=== PATIENT | female | born 1970 | race Caucasian/White ===

== ENCOUNTER 2017-08-09 07:36 | Outpatient (RCR) | payer BC ==
[~2017-08-09 07:36] MED LIST: ALPR0.5T7 PO; AMOX1TAB12 PO; ASPI325T32 PO; CARV12.53 PO; CETI10CA PO; CETI10TA17 PO; CETI10TA20 PO; DULO60CA58 PO; FLUT16SP22 NS; GUAI10SY4 PO; HYDR25TA4 PO; HYDR5SYR PO; LOSA100T7 PO; LOSA25TA5 PO; LOSA50TA36 PO; METO-351 PO; RT-ADVAIR1 IH; VORT10TA PO
== END 2017-10-14 | disposition home or self-care (01) ==
LOC: CARD 07:36
PROVIDERS: ATTEND Internal Medicine Interventional Cardiology
DX: I48.91 Unspecified atrial fibrillation (principal); I10 Essential (primary) hypertension; I47.1 Supraventricular tachycardia
CPT/HCPCS: 93270

== ENCOUNTER → 2017-09-16 | Day surgery (SDC) | payer BC ==
[~2017-09-16] VITALS: Ht 157.5 cm; Wt 96.6 kg
[~2017-09-16] MED LIST changes: +LIDOCAINE 1% INJ 50 ML (XYLOCAINE) VIAL ONE
[2017-09-16 09:52] VITALS: BP 135/69
--- NOTE | 2017-09-16 12:58 | Cardiology Post Procedure Note ---
Post-Procedure Note Physician (s)/Diagnostic Medical Sonographer (s) Physician Sabrina MONTIEL MD Pre-Procedure Diagnosis Pre-Procedure Diagnosis: [facility] surveillance of PAF Post-Procedure Note Procedure Start Date: Sep 16, 2017 Procedure Start Time: 12:57 Name of Procedure: Biotronik ILR Findings/Procedure Note Successful Biotronik ILR implantation. Estimated blood loss (mL): 1 Contrast Amount: 0 Post-Procedure Diagnosis Post-operative diagnosis: Successful implantation of a Biotronik ILR for AF surveillance. Sabrina MONTIEL MD Sep 16, 2017 12:58 pm
[2017-09-16 13:14] VITALS: BP 164/83
--- NOTE | 2017-09-16 17:12 | OPERATIVE REPORT ---
DATE OF SERVICE: 09/16/2017 IMPLANTABLE LOOP RECORDER REPORT INDICATION: Paroxysmal atrial fibrillation. PREOPERATIVE DIAGNOSIS: Long-term surveillance of atrial fibrillation is recommended. POSTOPERATIVE DIAGNOSIS: Successful Biotronik implantable loop recorder placement. SURGEON: Brandon Siddiqui M.D. HISTORY: The patient is a 47-year-old lady with a history of paroxysmal atrial fibrillation. Long-term surveillance of atrial fibrillation was recommended. PROCEDURE IN DETAIL: The patient was brought to the laborer road after informed consent was taken. The risks and complications were explained in detail. The patient was draped and prepped in the usual sterile fashion. The Biotronik implantable loop recorder was placed according to the protocol on the left-sided fourth intercostal space after lidocaine was given for local anesthesia. The patient tolerated the procedure well, did not have any complication. The incision was closed with two interrupted sutures. R-wave was 0.98 millivolts. CONCLUSION: 1. Successful Biotronik implantable loop recorder placement. 2. Long-term surveillance of atrial fibrillation is recommended. Job ID: [id number] DocumentID: [id number] Dictated Date: 09/16/2017 14:04:03 Predatory Animal Exterminator Date: 09/16/2017 14:37:06 Dictated By: BRANDON SIDDIQUI MD
== END | disposition home or self-care (01) ==
LOC: CATH 09:36
PROVIDERS: ATTEND Internal Medicine Interventional Cardiology
DX: I48.0 Paroxysmal atrial fibrillation (principal); I10 Essential (primary) hypertension; I08.1 Rheumatic disorders of both mitral and tricuspid valves; G47.33 Obstructive sleep apnea (adult) (pediatric); E66.01 Morbid (severe) obesity due to excess calories; Z68.39 Body mass index [BMI] 39.0-39.9, adult; Z79.01 Long term (current) use of anticoagulants; Z79.899 Other long term (current) drug therapy
CPT/HCPCS: 33282

== ENCOUNTER 2017-12-16 22:11 | Emergency (ER) | payer BC ==
[~2017-12-16] VITALS: Ht 157.5 cm; Wt 93.9 kg
[~2017-12-16 22:11] MED LIST changes: -LIDOCAINE 1% INJ 50 ML (XYLOCAINE) VIAL ONE
[2017-12-16 22:42] LABS: BILIRUBIN,URINE NEGATIVE (NEGATIVE); CLARITY,URINE BLOODY; COLOR,URINE RED; GLUCOSE, URINE (UA) NEGATIVE (NEGATIVE); KETONES,URINE NEGATIVE (NEGATIVE); LEUKOCYTE ESTERASE ,URINE 3+ (NEGATIVE); NITRITE,URINE NEGATIVE (NEGATIVE); PH,URINE 7 (5-9); PROTEIN,URINE 3+ (NEGATIVE); UROBILINOGEN,URINE NORMAL (NORMAL)
[2017-12-16 22:57] LABS: BACTERIA,URINE FEW /HPF; WBC,URINE TNTC /HPF
[2017-12-16] MEDS ORDERED: RX-NITROFURANTOIN 100 MG (MACROBID) CAP PPK#2 PO STA (23:09)
[2017-12-16] MEDS ORDERED: NITR-65 PO (23:12)
[2017-12-16] MEDS ORDERED: PHEN-640 PO (23:12)
--- NOTE | 2017-12-16 23:12 | ED GU-Female ---
General Chief Complaint: -Female Stated Complaint: UTI OR KIDNEY STONE Nursing Triage Note: PT TO ED 1 W/ SON FOR C/O SUDDEN ONSET URINARY RETENTION, BLOOD IN URINE. REPORTS HAS URGENCY ET FREQUENCY W/ C/O. PT AFEBRILE AT THIS TIME. Nursing Sepsis Screen: No Definite Risk Source: patient Exam Limitations: no limitations History of Present Illness Date Seen by Provider: Dec 16, 2017 Time Seen by Provider: 22:47 Initial Comments PT ARRIVES VIA POV FROM HOME C/O PAIN, BURNING AND DIFFICULTY URINATING SINCE THIS AFTERNOON C/O MUCH URGENCY, VOIDING SMALL AMOUNTS/DRIBBLES, AND FREQUENCY C/O LOWER ABDOMINAL CRAMPING AT TIMES HAS NOTICED BLOOD IN URINE TONIGHT NO FEVER NO BACK PAIN NO NAUSEA/VOMITING NO HISTORY OF SIMILAR Allergies and Home Medications Allergies Coded Allergies: lisinopril (Unverified Adverse Reaction, Unknown, 09/26/14) COUGH Home Medications Alprazolam 0.5 Mg Tablet, 0.5 MG PO TID PRN for ANXIETY, (Reported) Aspirin 325 Mg Tablet.dr, 325 MG PO DAILY Prescribed by: IDALIA MUELLER on 06/14/17 1650 Cetirizine HCl 10 Mg Tablet, 10 MG PO DAILY, (Reported) Hydrochlorothiazide 25 Mg Tablet, 25 MG PO DAILY, (Reported) Losartan Potassium 50 Mg Tablet, 50 MG PO BID, (Reported) LAST FILLED 03/12/17 #90 Metoprolol Succinate 25 Mg Tab.er.24h, 25 MG PO DAILY Prescribed by: IDALIA MUELLER on 06/14/17 165 Nitrofurantoin Monohyd/M-Cryst 100 Mg Capsule, 100 MG PO BID Prescribed by: WILLIAN ARNOLD on 12/16/17 231 Phenazopyridine HCl 200 Mg Tablet, 1 TAB PO TID Prescribed by: WILLIAN ARNOLD on 12/16/17 231 Vortioxetine Hydrobromide 10 Mg Tablet, 10 MG PO DAILY, (Reported) Patient Home Medication List Home Medication List Reviewed: Yes Review of Systems Constitutional: no symptoms reported Respiratory: no symptoms reported Cardiovascular: no symptoms reported Gastrointestinal: see HPI Genitourinary: see HPI, burning, dysuria, frequency; denies flank pain; hematuria, pain, urgency Musculoskeletal: no symptoms reported Skin: no symptoms reported Psychiatric/Neurological: No Symptoms Reported Endocrine: No Symptoms Reported Hematologic/Lymphatic: No Symptoms Reported Past Phivqmy-Pyvrth-Hbzbid Hx Patient Social History Alcohol Use: Denies Use Recreational Drug Use: No Smoking Status: Never a Smoker Recent Foreign Travel: No Contact w/Someone Who Travel: No Recent Infectious Disease Expo: No Recent Hopitalizations: No Immunizations Up To Date PED Vaccines UTD: No Seasonal Allergies Seasonal Allergies: Yes Past Medical History Surgeries: Yes (GASTRIC SLEEVE; D&C; LIPOMA REMOVED-WOUND INFECTION WITH DEBRIDEMENTS AND WOUND VAC; BLADDER SURGERY AGE 4) Abdominal, Bladder Surgery Respiratory: No Cardiac: Yes (SVT) Hypertension, Irregular Heartbeat Neurological: No Reproductive Disorders: No Sexually Transmitted Disease: No Genitourinary: No (BLADDER SURGERY AGE 4) Gastrointestinal: No (GASTRIC SLEEVE (05/14)) Musculoskeletal: No Endocrine: No HEENT: No Cancer: No Psychosocial: Yes Anxiety, PTSD, Depression Integumentary: Yes (MRSA-POST OP WOUND INFECTION WITH DEBRIDEMENTS/ WOUND VAC) Blood Disorders: No Family Medical History Arthritis 19 FATHER 19 MOTHER Cardiovascular disease Diabetes mellitus 19 MOTHER FH: CHF (congestive heart failure) 19 FATHER Hypertension 19 FATHER 19 MOTHER G8 BROTHER G8 SISTER Hypertension Physical Exam Vital Signs Vital Signs - First Documented 12/16/17 22:42 Temp 98.1 Pulse 91 Resp 20 B/P (MAP) 142/87 (105) Pulse Ox 99 O2 Delivery Room Air Capillary Refill : Less Than 3 Seconds General Appearance: no apparent distress Cardiovascular: regular rate, rhythm, no murmur Respiratory: normal breath sounds, no respiratory distress, no accessory muscle use Gastrointestinal: normal bowel sounds, soft, no organomegaly, no pulsatile mass ; No distended, No guarding, No rebound; tenderness (MILD SUPRAPUBIC TENDERNESSS ); No hernia, No mass Back: normal inspection, no CVA tenderness Extremities: normal inspection, no pedal edema, normal capillary refill 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, no motor/sensory deficits, alert, normal mood/affect, oriented x 3 Skin: normal color, warm/dry Progress/Results/Core Measures Suspected Sepsis Recent Fever Within 48 Hours: No Infection Criteria Present: None New/Unexplained Altered Menta: No Sepsis Screen: No Definite Risk SIRS Temperature:98.1 Pulse: 91 Respiratory Rate: 20 Blood Pressure 142 /87 Mean: 105 Results/Orders Lab Results Laboratory Tests Test 12/16/17 22:37 Range/Units Urine Color RED H Urine Clarity BLOODY H Urine pH 7 5-9 Urine Specific [place] 1.005 L 1.016-1.022 Urine Protein 3+ H NEGATIVE Urine Glucose (UA) NEGATIVE NEGATIVE Urine Ketones NEGATIVE NEGATIVE Urine Nitrite NEGATIVE NEGATIVE Urine Bilirubin NEGATIVE NEGATIVE Urine Urobilinogen NORMAL NORMAL MG/DL Urine Leukocyte Esterase 3+ H NEGATIVE Urine RBC (Auto) 5+ H NEGATIVE Urine RBC 5-10 H /HPF Urine WBC TNTC H /HPF Urine Squamous Epithelial Cells 2-5 /HPF Urine Crystals NONE /LPF Urine Bacteria FEW H /HPF Urine Casts NONE /LPF Urine Mucus NEGATIVE /LPF Urine Culture Indicated YES My Orders Orders - CLAYTON,WILLIAN K DO Rx-Nitrofurantoin [place] (Rx-Macrobid) (12/16/17 23:09) Phenazopyridine Tablet (Pyridium Tablet) (12/16/17 23:15) Medications Given in ED Current Medications Medications Dose Ordered Sig/Natasha Route Start Time Stop Time Status Last Admin Dose Admin Phenazopyridine HCl 200 mg ONCE ONCE PO 12/16/17 23:15 12/16/17 23:16 DC 12/16/17 23:15 200 MG Vital Signs/I&O 12/16/17 12/16/17 22:42 23:17 Temp 98.1 Pulse 91 0 Resp 20 0 B/P (MAP) 142/87 (105) 0/0 Pulse Ox 99 0 O2 Delivery Room Air Capillary Refill : Less Than 3 Seconds Blood Pressure Mean: 105 Departure Impression Primary Impression: Urinary tract infection Disposition: 01 HOME, SELF-CARE Condition: Stable Departure-Patient Inst. Referrals: AMITA MARLOW MD (PCP) Primary Care Physician BETH GODINEZ (Family) Primary Care Physician Patient Instructions: Urinary Tract Infection, Adult (DC) Add. Discharge Instructions: LOTS OF CLEAR LIQUIDS--NO COFFEE, POP OR TEA TYLENOL AND MOTRIN NEEDED FOR PAIN FOLLOW UP WITH YOUR DR IN 2-3 DAYS IF NO BETTER All discharge instructions reviewed with patient and/or family. Voiced understanding. Scripts Phenazopyridine HCl (Pyridium) 200 Mg Tablet 1 TAB PO TID for BLADDER DISCOMFORT, #15 TAB Prov: CLAYTON,WILLIAN K DO 12/16/17 Nitrofurantoin Monohyd/M-Cryst (Macrobid 100 mg Capsule) 100 Mg Capsule 100 MG PO BID, #20 CAP Prov: WILLIAN ARNOLD DO 12/16/17 WILLIAN ARNOLD DO Dec 16, 2017 23:12
[2017-12-16] MEDS ORDERED: PHENAZOPYRIDINE 100 MG (PYRIDIUM) TABLET PO ONE (23:15)
[2017-12-16 23:17] VITALS: BP 0/0
== END 2017-12-16 23:17 | disposition home or self-care (01) ==
LOC: EDUNIT# 22:11 → ER 22:13
DX: N39.0 Urinary tract infection, site not specified (principal); I10 Essential (primary) hypertension; F41.9 Anxiety disorder, unspecified; F32.9 Major depressive disorder, single episode, unspecified; F43.10 Post-traumatic stress disorder, unspecified; Z86.14 Personal history of Methicillin resistant Staphylococcus aureus infection; Z82.49 Family history of ischemic heart disease and other diseases of the circulatory system; Z88.8 Allergy status to other drugs, medicaments and biological substances; Z79.82 Long term (current) use of aspirin; Z98.84 Bariatric surgery status
CPT/HCPCS: 81000; 87077; 87088; 87186; 99283

== ENCOUNTER 2018-09-05 05:32 | Outpatient (CLI) | payer BC ==
[~2018-09-05] VITALS: Ht 157.5 cm; Wt 90.7 kg
[~2018-09-05 05:32] MED LIST changes: -LOSA50TA36 PO; +LOSA50TA7 PO; +NITR-65 PO; +PHEN-640 PO
[2018-09-05] MEDS ORDERED: APIX5TAB PO (15:53)
[2018-09-05] MEDS ORDERED: METO-387 PO (15:53)
== END 2018-09-05 15:56 | disposition home or self-care (01) ==
LOC: PREOP 05:32
PROVIDERS: ATTEND Internal Medicine Interventional Cardiology
DX: Z01.818 Encounter for other preprocedural examination (principal)

== ENCOUNTER 2018-09-12 06:09 | Day surgery (SDC) | payer BC ==
[2018-09-12] VITALS (14 sets, daily range): BP systolic 100–142; BP diastolic 55–109
[~2018-09-12] VITALS: Ht 157.5 cm; Wt 90.7 kg
[~2018-09-12 06:09] MED LIST changes: +APIX5TAB PO; +METO-387 PO
--- OUTSIDE RECORDS SUMMARY | 2018-09-12 06:16 | XMS REPORT | Continuity of Care Document ---
Author Author [facility] Organization [facility] Address Unknown Phone Unavailable Allergies Active Description Code Type Severity Reaction Onset Reported/Identified Relationship to Patient Clinical Status Yes BETA BLOCKERS BETA BLOCKERS MILD Yes NO KNOWN DRUG ALLERGIES NO KNOWN DRUG ALLERG UNKNOWN Yes BETA BLOCKERS MILD RESPIRATORY - COUGHI Yes BETA BLOCKERS MILD SIDE EFFECT Yes NO KNOWN DRUG ALLERGIES UNKNOWN NO KNOWN DRUG ALLERG Yes lisinopril [id number] Drug Allergy Unknown N/A 09/26/2014 Medications Medication Packaging Start Date Stop Date Route Dosage Sig FENTANYL AMP INJ 100 MCG/2CC MCG 10/06/2016 ONCE&0734 LACTATED RINGERS 1000CC IV BAG INJ 0 ml 10/06/2016 10/13/2016 CONTINUOUSEVERY 0 Hour CEFAZOLIN VIAL INJ 1 GM (ANCEF) GM 10/06/2016 10/06/2016 ONCE&1145 doxycycline hyclate 100mg capsule (Vibramycin) Dose(s) 01/14/2017 01/24/2017 EVERY 12 Hour&0032,1232 LACTATED RINGERS 1000CC IV BAG INJ ml 01/14/2017 01/21/2017 CONTINUOUSEVERY 0 Hour LACTATED RINGERS 1000CC IV BAG INJ ml 01/15/2017 01/21/2017 CONTINUOUSEVERY 0 Hour CEFAZOLIN VIAL INJ 1 GM (ANCEF) GM 01/15/2017 01/15/2017 ONCE&1115 Problems Date Dx Coded Attending Type Code Diagnosis Diagnosed By 09/27/2014 FREDERICK BARRON DO Ot 278.01 MORBID OBESITY 09/27/2014 FREDERICK BARRON DO Ot 311 DEPRESSIVE DISORDER NEC 09/27/2014 FREDERICK BARRON DO Ot 401.9 HYPERTENSION NOS 09/27/2014 FREDERICK BARRON DO Ot 427.0 PAROX ATRIAL TACHYCARDIA 09/27/2014 FREDERICK BARRON DO Ot 427.89 CARDIAC DYSRHYTHMIAS NEC 09/27/2014 FREDERICK BARRON DO Ot 465.9 ACUTE URI NOS 09/27/2014 BARRON DO, FREDERICK Ot 490 BRONCHITIS NOS 09/27/2014 BARRON DO, FREDERICK Ot 786.50 CHEST PAIN NOS 09/27/2014 BEATRICE GREENE, FREDERICK Ot 790.29 OTHER ABNORMAL GLUCOSE 09/27/2014 BEATRICE GREENE, FREDERICK Ot 790.5 ABN SERUM ENZY LEVEL NEC 09/27/2014 BEATRICE GREENE FREDERICK Ot V85.42 BODY MASS INDEX 45.0-49.9, ADULT 12/28/2014 AMAURY REYES DO Ot 327.23 OBSTRUCTIVE SLEEP APNEA (ADULT) (PEDIATR 12/28/2014 AMAURY REYES DO Ot 401.9 HYPERTENSION NOS 02/13/2015 CR CORTEZ, DEISY Lugo Ot 401.9 02/13/2015 CR CORTEZ, DEISY Lugo Ot 401.9 03/05/2015 DARLENE DORSEY APRN Ot 278.01 03/05/2015 DARLENE DORSEY APRN Ot 327.23 06/07/2015 CR CORTEZ, DEISY Lugo Ot 401.9 06/07/2015 DARLENE DORSEY APRN Ot 278.01 06/07/2015 DARLENE DORSEY APRN Ot 327.23 09/02/2015 CR CORTEZ, DEISY Lugo Ot 401.9 09/02/2015 DARLENE DORSEY APRN Ot 278.01 09/02/2015 DARLENE DORSEY APRN Ot 327.23 01/16/2016 CR CORTEZ, DEISY Lugo Ot 401.9 HYPERTENSION NOS 01/16/2016 DARLENE DORSEY APRN Ot 278.01 MORBID OBESITY 01/16/2016 DARLENE DORSEY APRN Ot 327.23 OBSTRUCTIVE SLEEP APNEA (ADULT) (PEDIATR 10/06/2016 Murphy Dupont 729.3 PANNICULITIS, UNSPECIFIED 10/06/2016 Murphy Dupont 782.2 LOCALIZED SUPERFICIAL SWELLING, MASS, OR LUMP 10/06/2016 Murphy Dupont M79.3 PANNICULITIS, UNSPECIFIED 10/06/2016 Murphy Dupont R22.42 LOCALIZED SWELLING, MASS AND LUMP, LEFT LOWER LIMB 01/15/2017 Murphy Dupont 041.11 METHICILLIN SUSCEPTIBLE STAPHYLOCOCCUS AUREUS INFECTION IN CONDITIONS CLASSIFIED ELSEWHERE AND OF UNSPECIFIED SITE 01/15/2017 Murphy Dupont 998.59 OTHER POSTOPERATIVE INFECTION 01/15/2017 Murphy Dupont B95.61 METHICILLIN SUSCEP STAPH INFCT CAUSING DIS CLASSD ELSWHR 01/15/2017 Murphy Dupont T81.4XXA INFECTION FOLLOWING A PROCEDURE, INITIAL ENCOUNTER 01/16/2017 Murphy Dupont 041.11 METHICILLIN SUSCEPTIBLE STAPHYLOCOCCUS AUREUS INFECTION IN CONDITIONS CLASSIFIED ELSEWHERE AND OF UNSPECIFIED SITE 01/16/2017 Murphy Dupont 998.59 OTHER POSTOPERATIVE INFECTION 01/16/2017 Murphy Dupont B95.61 METHICILLIN SUSCEP STAPH INFCT CAUSING DIS CLASSD ELSWHR 01/16/2017 Murphy Dupont T81.4XXA INFECTION FOLLOWING A PROCEDURE, INITIAL ENCOUNTER 01/16/2017 Murphy Dupont V58.31 ENCOUNTER FOR CHANGE OR REMOVAL OF SURGICAL WOUND DRESSING 01/16/2017 Murphy Dupont Z48.01 ENCOUNTER FOR CHANGE OR REMOVAL OF SURGICAL WOUND DRESSING 01/17/2017 Murphy Dupont 041.11 METHICILLIN SUSCEPTIBLE STAPHYLOCOCCUS AUREUS INFECTION IN CONDITIONS CLASSIFIED ELSEWHERE AND OF UNSPECIFIED SITE 01/17/2017 Murphy Dupont 998.59 OTHER POSTOPERATIVE INFECTION 01/17/2017 Murphy Dupont B95.61 METHICILLIN SUSCEPTIBLE STAPHYLOCOCCUS AUREUS INFECTION THE CAUSE OF DISEASES CLASSIFIED ELSEWHERE 01/17/2017 Murphy Dupont T81.4XXA INFECTION FOLLOWING A PROCEDURE, INITIAL ENCOUNTER 01/17/2017 Murphy Dupont V58.31 ENCOUNTER FOR CHANGE OR REMOVAL OF SURGICAL WOUND DRESSING 01/17/2017 Murphy Dupont Z48.01 ENCOUNTER FOR CHANGE OR REMOVAL OF SURGICAL WOUND DRESSING 01/23/2017 Murphy Dupont 041.11 METHICILLIN SUSCEPTIBLE STAPHYLOCOCCUS AUREUS INFECTION IN CONDITIONS CLASSIFIED ELSEWHERE AND OF UNSPECIFIED SITE 01/23/2017 Murphy Dpuont 998.59 OTHER POSTOPERATIVE INFECTION 01/23/2017 Murphy Dupont B95.61 METHICILLIN SUSCEP STAPH INFCT CAUSING DIS CLASSD ELSWHR 01/23/2017 Murphy Dupont T81.4XXA INFECTION FOLLOWING A PROCEDURE, INITIAL ENCOUNTER 01/23/2017 KiahMurphy V58.31 ENCOUNTER FOR CHANGE OR REMOVAL OF SURGICAL WOUND DRESSING 01/23/2017 Murphy Dupont Z48.01 ENCOUNTER FOR CHANGE OR REMOVAL OF SURGICAL WOUND DRESSING 01/24/2017 KiahOral phamdemian Oconnor 041.11 METHICILLIN SUSCEPTIBLE STAPHYLOCOCCUS AUREUS INFECTION IN CONDITIONS CLASSIFIED ELSEWHERE AND OF UNSPECIFIED SITE 01/24/2017 Murphy Dupont 998.59 OTHER POSTOPERATIVE INFECTION 01/24/2017 KiahMurphy B95.61 METHICILLIN SUSCEP STAPH INFCT CAUSING DIS CLASSD ELSWHR 01/24/2017 Kiah, Murphy Oconnor T81.4XXA INFECTION FOLLOWING A PROCEDURE, INITIAL ENCOUNTER 01/24/2017 Murphy Dupont V58.31 ENCOUNTER FOR CHANGE OR REMOVAL OF SURGICAL WOUND DRESSING 01/24/2017 Murphy Dupont Z48.01 ENCOUNTER FOR CHANGE OR REMOVAL OF SURGICAL WOUND DRESSING 01/25/2017 Murphy Dupont 041.11 METHICILLIN SUSCEPTIBLE STAPHYLOCOCCUS AUREUS INFECTION IN CONDITIONS CLASSIFIED ELSEWHERE AND OF UNSPECIFIED SITE 01/25/2017 KiahMurphy 998.59 OTHER POSTOPERATIVE INFECTION 01/25/2017 KiahMurphy B95.61 METHICILLIN SUSCEP STAPH INFCT CAUSING DIS CLASSD ELSWHR 01/25/2017 KiahMurphy T81.4XXA INFECTION FOLLOWING A PROCEDURE, INITIAL ENCOUNTER 01/25/2017 Murphy Dupont V58.31 ENCOUNTER FOR CHANGE OR REMOVAL OF SURGICAL WOUND DRESSING 01/25/2017 Murphy Dupont Z48.01 ENCOUNTER FOR CHANGE OR REMOVAL OF SURGICAL WOUND DRESSING 06/13/2017 CR CORTEZ, RYAN Ot 401.9 HYPERTENSION NOS 06/13/2017 DARLENE DORSEY APRN Ot 278.01 MORBID OBESITY 06/13/2017 DARLENE DORSEY APRN Ot 327.23 OBSTRUCTIVE SLEEP APNEA (ADULT) (PEDIATR 06/14/2017 IDALIA MUELLER MD Ot G47.30 SLEEP APNEA, UNSPECIFIED 06/14/2017 IDALIA MUELLER MD Ot I10 ESSENTIAL (PRIMARY) HYPERTENSION 06/14/2017 IDALIA MUELLER MD Ot I47.1 SUPRAVENTRICULAR TACHYCARDIA 06/14/2017 IDALIA MUELLER MD Ot J44.9 CHRONIC OBSTRUCTIVE PULMONARY DISEASE, U 06/14/2017 IDALIA MUELLER MD Ot R07.9 CHEST PAIN, UNSPECIFIED 06/14/2017 IDALIA MUELLER MD Ot Z79.899 OTHER LONGTERM (CURRENT) DRUG THERAPY 06/14/2017 IDALIA MUELLER MD Ot Z98.84 BARIATRIC SURGERY STATUS 06/14/2017 IDALIA MUELLER MD Ot G47.30 SLEEP APNEA, UNSPECIFIED 06/14/2017 IDALIA MUELLER MD J Ot I10 ESSENTIAL (PRIMARY) HYPERTENSION 06/14/2017 IDALIA MUELLER MD Ot I47.1 SUPRAVENTRICULAR TACHYCARDIA 06/14/2017 IDALIA MUELLER MD Ot J44.9 CHRONIC OBSTRUCTIVE PULMONARY DISEASE, U 06/14/2017 IDALIA MUELLER MD Ot R07.9 CHEST PAIN, UNSPECIFIED 06/14/2017 IDALIA MUELLER MD J Ot Z79.899 OTHER ECG TECHNICIAN (CURRENT) DRUG THERAPY 06/14/2017 IDALIA MUELLER MD Ot Z98.84 BARIATRIC SURGERY STATUS 06/15/2017 IDALIA MUELLER MD Ot G47.30 SLEEP APNEA, UNSPECIFIED 06/15/2017 IDALIA MUELLER MD Ot I10 ESSENTIAL (PRIMARY) HYPERTENSION 06/15/2017 IDALIA MUELLER MD Ot I47.1 SUPRAVENTRICULAR TACHYCARDIA 06/15/2017 IDALIA MUELLER MD Ot J44.9 CHRONIC OBSTRUCTIVE PULMONARY DISEASE, U 06/15/2017 IDALIA MUELLER MD Ot R07.9 CHEST PAIN, UNSPECIFIED 06/15/2017 IDALIA MUELLER MD Ot Z79.899 OTHER ECG TECHNICIAN (CURRENT) DRUG THERAPY 06/15/2017 IDALIA MUELLER MD Ot Z98.84 BARIATRIC SURGERY STATUS 06/25/2017 CR CORTEZ, DEISY Lugo Ot 401.9 HYPERTENSION NOS 06/25/2017 DARLENE DORSEY APRN Ot 278.01 MORBID OBESITY 06/25/2017 DARLENE DORSEY APRN Ot 327.23 OBSTRUCTIVE SLEEP APNEA (ADULT) (PEDIATR 07/19/2017 Sabrina MONTIEL MD Ot I10 ESSENTIAL (PRIMARY) HYPERTENSION 07/19/2017 Sabrina MONTIEL MD Ot I47.1 SUPRAVENTRICULAR TACHYCARDIA 07/19/2017 Sabrina MONTIEL MD Ot I48.91 UNSPECIFIED ATRIAL FIBRILLATION 08/12/2017 Sabrina MONTIEL MD Ot I10 ESSENTIAL (PRIMARY) HYPERTENSION 08/12/2017 Sabrina MONTIEL MD Ot I47.1 SUPRAVENTRICULAR TACHYCARDIA 08/12/2017 Sabrina MONTIEL MD Ot I48.91 UNSPECIFIED ATRIAL FIBRILLATION 09/16/2017 Sabrina MONTIEL MD Ot I10 ESSENTIAL (PRIMARY) HYPERTENSION 09/16/2017 Sabrina MONTIEL MD Ot I47.1 SUPRAVENTRICULAR TACHYCARDIA 09/16/2017 Sabrina MONTIEL MD Ot I48.91 UNSPECIFIED ATRIAL FIBRILLATION 09/20/2017 Sabrina MONTIEL MD Ot E66.01 MORBID (SEVERE) OBESITY DUE TO EXCESS CA 09/20/2017 Sabrina MONTIEL MD Ot G47.33 OBSTRUCTIVE SLEEP APNEA (ADULT) (PEDIATR 09/20/2017 Sabrina MONTIEL MD Ot I08.1 RHEUMATIC DISORDERS OF BOTH MITRAL AND T 09/20/2017 Sabrina MONTIEL MD Ot I10 ESSENTIAL (PRIMARY) HYPERTENSION 09/20/2017 Sabrina MONTIEL MD Ot I48.0 PAROXYSMAL ATRIAL FIBRILLATION 09/20/2017 Sabrina MONTIEL MD Ot Z68.39 BODY MASS INDEX (BMI) 39.0-39.9, ADULT 09/20/2017 Sabrina MONTIEL MD Ot Z79.01 ECG TECHNICIAN (CURRENT) USE OF ANTICOAGULANT 09/20/2017 Sabrina MONTIEL MD Ot Z79.899 OTHER ECG TECHNICIAN (CURRENT) DRUG THERAPY 09/21/2017 Sabrina MONTIEL MD Ot E66.01 MORBID (SEVERE) OBESITY DUE TO EXCESS CA 09/21/2017 Sabrina MONTIEL MD Ot G47.33 OBSTRUCTIVE SLEEP APNEA (ADULT) (PEDIATR 09/21/2017 Sabrina MONTIEL MD Ot I08.1 RHEUMATIC DISORDERS OF BOTH MITRAL AND T 09/21/2017 Sabrina MONTIEL MD Ot I10 ESSENTIAL (PRIMARY) HYPERTENSION 09/21/2017 Sabrina MONTIEL MD Ot I48.0 PAROXYSMAL ATRIAL FIBRILLATION 09/21/2017 Sabrina MONTIEL MD Ot Z68.39 BODY MASS INDEX (BMI) 39.0-39.9, ADULT 09/21/2017 Sabrina MONTIEL MD Ot Z79.01 LONGTERM (CURRENT) USE OF ANTICOAGULANT 09/21/2017 Sabrina MONTIEL MD Ot Z79.899 OTHER ECG TECHNICIAN (CURRENT) DRUG THERAPY 09/30/2017 Sabrina MONTIEL MD Ot E66.01 MORBID (SEVERE) OBESITY DUE TO EXCESS CA 09/30/2017 Sabrina MONTIEL MD Ot G47.33 OBSTRUCTIVE SLEEP APNEA (ADULT) (PEDIATR 09/30/2017 Sabrina MONTIEL MD Ot I08.1 RHEUMATIC DISORDERS OF BOTH MITRAL AND T 09/30/2017 Sabrina MONTIEL MD Ot I10 ESSENTIAL (PRIMARY) HYPERTENSION 09/30/2017 Sabrina MONTIEL MD Ot I48.0 PAROXYSMAL ATRIAL FIBRILLATION 09/30/2017 Sabrina MONTIEL MD Ot Z68.39 BODY MASS INDEX (BMI) 39.0-39.9, ADULT 09/30/2017 Sabrina MONTIEL MD Ot Z79.01 ECG TECHNICIAN (CURRENT) USE OF ANTICOAGULANT 09/30/2017 Sabrina MONTIEL MD Ot Z79.899 OTHER LONGTERM (CURRENT) DRUG THERAPY 10/14/2017 Sabrina MONTIEL MD Ot I10 ESSENTIAL (PRIMARY) HYPERTENSION 10/14/2017 Sabrina MONTIEL MD Ot I47.1 SUPRAVENTRICULAR TACHYCARDIA 10/14/2017 Sabrina MONTIEL MD Ot I48.91 UNSPECIFIED ATRIAL FIBRILLATION 10/15/2017 Sabrina MONTIEL MD Ot I10 ESSENTIAL (PRIMARY) HYPERTENSION 10/15/2017 Sabrina MONTIEL MD Ot I47.1 SUPRAVENTRICULAR TACHYCARDIA 10/15/2017 Sabrina MONTIEL MD Ot I48.91 UNSPECIFIED ATRIAL FIBRILLATION 12/16/2017 WILLIAN ARNOLD DO Ot F32.9 MAJOR DEPRESSIVE DISORDER, SINGLE EPISOD 12/16/2017 CLAYTON DO, WILLIAN K Ot F41.9 ANXIETY DISORDER, UNSPECIFIED 12/16/2017 CLAYTON DO, WILLIAN K Ot F43.10 POST-TRAUMATIC STRESS DISORDER, UNSPECIF 12/16/2017 CLAYTON DO, WILLIAN K Ot I10 ESSENTIAL (PRIMARY) HYPERTENSION 12/16/2017 CLAYTON DO, WILLIAN K Ot N39.0 URINARY TRACT INFECTION, SITE NOT SPECIF 12/16/2017 CLAYTON DO, WILLIAN K Ot R30.0 DYSURIA 12/16/2017 CLAYTON DO, WILLIAN K Ot Z79.82 LONGTERM (CURRENT) USE OF ASPIRIN 12/16/2017 CLAYTON DO, WILLIAN K Ot Z82.49 FAMILY HX OF ISCHEM HEART DIS AND OTH DI 12/16/2017 CLAYTON DO, WILLIAN K Ot Z86.14 PERSONAL HISTORY OF METHICILLIN RESIS ST 12/16/2017 CLAYTON DO, WILLIAN K Ot Z88.8 ALLERGY STATUS TO OTH DRUG/MEDS/BIOL SUB 12/16/2017 CLAYTON DO, WILLIAN K Ot Z98.84 BARIATRIC SURGERY STATUS 12/20/2017 CLAYTON DO, WILLIAN K Ot F32.9 MAJOR DEPRESSIVE DISORDER, SINGLE EPISOD 12/20/2017 CLAYTON DO, WILLIAN K Ot F41.9 ANXIETY DISORDER, UNSPECIFIED 12/20/2017 CLAYTON DO, WILLIAN K Ot F43.10 POST-TRAUMATIC STRESS DISORDER, UNSPECIF 12/20/2017 CLAYTON DO, WILLIAN K Ot I10 ESSENTIAL (PRIMARY) HYPERTENSION 12/20/2017 CLAYTON DO, WILLIAN K Ot N39.0 URINARY TRACT INFECTION, SITE NOT SPECIF 12/20/2017 CLAYTON DO, WILLIAN K Ot R30.0 DYSURIA 12/20/2017 CLAYTON DO, WILLIAN K Ot Z79.82 ECG TECHNICIAN (CURRENT) USE OF ASPIRIN 12/20/2017 CLAYTON DO, WILLIAN K Ot Z82.49 FAMILY HX OF ISCHEM HEART DIS AND OTH DI 12/20/2017 CLAYTON DO, WILLIAN K Ot Z86.14 PERSONAL HISTORY OF METHICILLIN RESIS ST 12/20/2017 CLATYON DO WILLIAN K Ot Z88.8 ALLERGY STATUS TO OTH DRUG/MEDS/BIOL SUB 12/20/2017 CLAYTON DO WILLIAN K Ot Z98.84 BARIATRIC SURGERY STATUS 02/16/2018 CR CORTEZ, DEISY Lugo Ot 401.9 HYPERTENSION NOS 02/16/2018 DARLENE DORSEY APRN Ot 278.01 MORBID OBESITY 02/16/2018 DARLENE DORSEY APRN Ot 327.23 OBSTRUCTIVE SLEEP APNEA (ADULT) (PEDIATR 02/16/2018 Sabrina MONTIEL MD Ot E66.01 MORBID (SEVERE) OBESITY DUE TO EXCESS CA 02/16/2018 Sabrina MONTIEL MD Ot G47.33 OBSTRUCTIVE SLEEP APNEA (ADULT) (PEDIATR 02/16/2018 Sabrina MONTIEL MD Ot I08.1 RHEUMATIC DISORDERS OF BOTH MITRAL AND T 02/16/2018 Sabrina MONTIEL MD Ot I10 ESSENTIAL (PRIMARY) HYPERTENSION 02/16/2018 Sabrina MONTIEL MD Ot I48.0 PAROXYSMAL ATRIAL FIBRILLATION 02/16/2018 Sabrina MONTIEL MD Ot Z68.39 BODY MASS INDEX (BMI) 39.0-39.9, ADULT 02/16/2018 Sabrina MONTIEL MD Ot Z79.01 ECG TECHNICIAN (CURRENT) USE OF ANTICOAGULANT 02/16/2018 Sabrina MONTIEL MD Ot Z79.899 OTHER LONGTERM (CURRENT) DRUG THERAPY 02/16/2018 Sabrina MONTIEL MD Ot I10 ESSENTIAL (PRIMARY) HYPERTENSION 02/16/2018 Sabrina MONTIEL MD Ot I47.1 SUPRAVENTRICULAR TACHYCARDIA 02/16/2018 Sabrina MONTIEL MD Ot I48.91 UNSPECIFIED ATRIAL FIBRILLATION 03/15/2018 Sabrina MONTIEL MD Ot E66.01 MORBID (SEVERE) OBESITY DUE TO EXCESS CA 03/15/2018 Sabrina MONTIEL MD Ot G47.33 OBSTRUCTIVE SLEEP APNEA (ADULT) (PEDIATR 03/15/2018 Sabrina MONTIEL MD Ot I08.1 RHEUMATIC DISORDERS OF BOTH MITRAL AND T 03/15/2018 Sabrina MONTIEL MD Ot I10 ESSENTIAL (PRIMARY) HYPERTENSION 03/15/2018 Sabrina MONTIEL MD Ot I48.0 PAROXYSMAL ATRIAL FIBRILLATION 03/15/2018 Sabrina MONTIEL MD Ot Z68.39 BODY MASS INDEX (BMI) 39.0-39.9, ADULT 03/15/2018 Sabrina MONTIEL MD Ot Z79.01 ECG TECHNICIAN (CURRENT) USE OF ANTICOAGULANT 03/15/2018 Sabrina MONTIEL MD Ot Z79.899 OTHER LONGTERM (CURRENT) DRUG THERAPY 05/05/2018 Sabrina MONTIEL MD Ot E66.01 MORBID (SEVERE) OBESITY DUE TO EXCESS CA 05/05/2018 Sabrina MONTIEL MD Ot G47.33 OBSTRUCTIVE SLEEP APNEA (ADULT) (PEDIATR 05/05/2018 Sabrina MONTIEL MD Ot I08.1 RHEUMATIC DISORDERS OF BOTH MITRAL AND T 05/05/2018 Sabrina MONTIEL MD Ot I10 ESSENTIAL (PRIMARY) HYPERTENSION 05/05/2018 Sabrina MONTIEL MD Ot I48.0 PAROXYSMAL ATRIAL FIBRILLATION 05/05/2018 Sabrina MONTIEL MD Ot Z68.39 BODY MASS INDEX (BMI) 39.0-39.9, ADULT 05/05/2018 Sabrina MONTIEL MD Ot Z79.01 ECG TECHNICIAN (CURRENT) USE OF ANTICOAGULANT 05/05/2018 Sabrina MONTIEL MD Ot Z79.899 OTHER LONGTERM (CURRENT) DRUG THERAPY 09/05/2018 Sabrina MONTIEL MD Ot Z01.818 ENCOUNTER FOR OTHER PREPROCEDURAL EXAMIN 09/06/2018 Sabrina MONTIEL MD Ot Z01.818 ENCOUNTER FOR OTHER PREPROCEDURAL EXAMIN 09/08/2018 Sabrina MONTIEL MD Ot E66.01 MORBID (SEVERE) OBESITY DUE TO EXCESS CA 09/08/2018 Sabrina MONTIEL MD Ot G47.33 OBSTRUCTIVE SLEEP APNEA (ADULT) (PEDIATR 09/08/2018 Sabrina MONTIEL MD Ot I08.1 RHEUMATIC DISORDERS OF BOTH MITRAL AND T 09/08/2018 Sabrina MONTIEL MD Ot I10 ESSENTIAL (PRIMARY) HYPERTENSION 09/08/2018 Sabrina MONTIEL MD Ot I48.0 PAROXYSMAL ATRIAL FIBRILLATION 09/08/2018 Sabrina MONTIEL MD Ot Z68.39 BODY MASS INDEX (BMI) 39.0-39.9, ADULT 09/08/2018 Sabrina MONTIEL MD Ot Z79.01 ECG TECHNICIAN (CURRENT) USE OF ANTICOAGULANT 09/08/2018 Sabrina MONTIEL MD, Ot Z79.899 OTHER ECG TECHNICIAN (CURRENT) DRUG THERAPY 09/08/2018 Sabrina MONTIEL MD Ot I10 ESSENTIAL (PRIMARY) HYPERTENSION 09/08/2018 Sabrina MONTIEL MD Ot I47.1 SUPRAVENTRICULAR TACHYCARDIA 09/08/2018 Sabrina MONTIEL MD, Ot I48.91 UNSPECIFIED ATRIAL FIBRILLATION Procedures There is no data. Results Test Result Range EKG - 09/29/16 11:03 EKG Complete Comprehensive Metabolic Panel - 09/29/16 11:03 Albumin 4.1 g/dL 3.6-5.1 ALP 67 U/L 35-130 ALT 16 U/L 6-45 Anion Gap 14 6-14 AST 17 U/L 2-40 BUN 11 mg/dL 5-25 Calcium 8.6 mg/dL 8.3-10.4 Chloride 106 mmol/L 95-114 CO2 26 mEq/L 22-33 Creat 0.75 mg/dL 0.50-1.50 eGFR 83 mL/min/1.73m2 >59 Globulin 2.6 g/dL 2.3-3.5 Glucose 78 mg/dL 70-110 Osmo 292 280-295 Potassium 4.0 mmol/L 3.5-5.3 Sodium 142 mmol/L 134-148 TBil 0.9 mg/dL 0.2-1.2 TP 6.7 g/dL 6.0-8.3 Test-Serum - 10/06/16 11:04 Preg Test-S Negative Negative Surgical Pathology - 10/06/16 12:33 Surg Path Sent to [facility] - 01/15/17 10:00 Anion Gap 13 6-14 BUN 10 mg/dL 5-25 Calcium 8.8 mg/dL 8.3-10.4 Chloride 108 mmol/L 95-114 CO2 24 mEq/L 22-33 Creat 0.76 mg/dL 0.50-1.50 eGFR 81 mL/min/1.73m2 >59 Glucose 94 mg/dL 70-110 Osmo 290 280-295 Potassium 4.0 mmol/L 3.5-5.3 Sodium 141 mmol/L 134-148 Other Culture - 01/15/17 11:45 PRELIM CULTURE RESULTS No Growth 24 hours MEDIA PLATED Setup at 13:24 on 01/15/2017 Anaerobic Culture - 01/15/17 11:45 ANAEROBIC CULTURE FINAL REPORT RESULT 1 NO ANAEROBIC GROWTH IN 72 HOURS. Complete blood count (CBC) with automated white blood cell (WBC) differential - 06/13/17 20:17 Blood leukocytes automated count (number/volume) 9.3 10*3/uL 4.3-11.0 Blood erythrocytes automated count (number/volume) 4.60 10*6/uL 4.35-5.85 Venous blood hemoglobin measurement (mass/volume) 13.1 g/dL 11.5-16.0 Blood hematocrit (volume fraction) 39 % 35-52 Automated erythrocyte mean corpuscular volume 85 [foz_us] 80-99 Automated erythrocyte mean corpuscular hemoglobin (mass per erythrocyte) 29 pg 25-34 Automated erythrocyte mean corpuscular hemoglobin concentration measurement ( mass/volume) 33 g/dL 32-36 Automated erythrocyte distribution width ratio 13.6 % 10.0-14.5 Automated blood platelet count (count/volume) 236 10*3/uL 130-400 Automated blood platelet mean volume measurement 9.9 [foz_us] 7.4-10.4 Automated blood neutrophils/100 leukocytes 58 % 42-75 Automated blood lymphocytes/100 leukocytes 26 % 12-44 Blood monocytes/100 leukocytes 7 % 0-12 Automated blood eosinophils/100 leukocytes 8 % 0-10 Automated blood basophils/100 leukocytes 1 % 0-10 Blood neutrophils automated count (number/volume) 5.4 10*3 1.8-7.8 Blood lymphocytes automated count (number/volume) 2.4 10*3 1.0-4.0 Blood monocytes automated count (number/volume) 0.7 10*3 0.0-1.0 Automated eosinophil count 0.8 10*3/uL 0.0-0.3 Automated blood basophil count (count/volume) 0.1 10*3/uL 0.0-0.1 Serum or plasma choriogonadotropin ( test) detection - 06/13/17 20:17 Serum or plasma choriogonadotropin ( test) detection NEGATIVE NEGATIVE PT panel in platelet poor plasma by coagulation assay - 06/13/17 20:17 Prothrombin time (PT) in platelet poor plasma by coagulation assay 13.5 s 12.2-14.7 INR in platelet poor plasma or blood by coagulation assay 1.0 0.8-1.4 Activated partial thromboplastin time (aPTT) in platelet poor plasma bycoagulation assay - 06/13/17 20:17 Activated partial thromboplastin time (aPTT) in platelet poor plasma bycoagulation assay 28 s 24-35 Comprehensive metabolic panel - 06/13/17 20:17 Serum or plasma sodium measurement (moles/volume) 141 mmol/L 135-145 Serum or plasma potassium measurement (moles/volume) 3.0 mmol/L 3.6-5.0 Serum or plasma chloride measurement (moles/volume) 108 mmol/L 98-107 Carbon dioxide 19 mmol/L 21-32 Serum or plasma anion gap determination (moles/volume) 14 mmol/L 5-14 Serum or plasma urea nitrogen measurement (mass/volume) 12 mg/dL 7-18 Serum or plasma creatinine measurement (mass/volume) 0.73 mg/dL 0.60-1.30 Serum or plasma urea nitrogen/creatinine mass ratio 16 NRG Serum or plasma creatinine measurement with calculation of estimated glomerular filtration rate > NRG Serum or plasma glucose measurement (mass/volume) 128 mg/dL 70-105 Serum or plasma calcium measurement (mass/volume) 8.8 mg/dL 8.5-10.1 Serum or plasma total bilirubin measurement (mass/volume) 0.6 mg/dL 0.1-1.0 Serum or plasma alkaline phosphatase measurement (enzymatic activity/volume) 56 U/L 40-136 Serum or plasma aspartate aminotransferase measurement (enzymatic activity/ volume) 18 U/L 5-34 Serum or plasma alanine aminotransferase measurement (enzymatic activity/volume ) 14 U/L 0-55 Serum or plasma protein measurement (mass/volume) 7.1 g/dL 6.4-8.2 Serum or plasma albumin measurement (mass/volume) 3.9 g/dL 3.2-4.5 Magnesium - 06/13/17 20:17 Magnesium 2.1 mg/dL 1.8-2.4 Serum or plasma creatine kinase measurement (enzymatic activity/volume) - 06/13 20:17 Serum or plasma creatine kinase measurement (enzymatic activity/volume) 93 U/L 29-168 Serum or plasma creatine kinase MB measurement (enzymatic activity/volume) - 20:17 Serum or plasma creatine kinase MB measurement (enzymatic activity/volume) 0.9 ng/mL <6.6 Serum or plasma troponin i.cardiac measurement (mass/volume) - 06/13/17 20:17 Serum or plasma troponin i.cardiac measurement (mass/volume) < ng/ mL <0.30 Serum or plasma lithium measurement (moles/volume) - 06/13/17 20:17 BNP level 20.1 pg/mL <100.0 Serum or plasma amylase measurement (enzymatic activity/volume) - 06/13/17 20: 17 Serum or plasma amylase measurement (enzymatic activity/volume) 39 U /L 25-125 Lipase - 06/13/17 20: Lipase 20 U/L 8-78 Serum or plasma thyrotropin measurement by detection limit <=0.05 miu/l (units/ volume) - 06/13/17 20:17 Serum or plasma thyrotropin measurement by detection limit <=0.05 miu/l (units/ volume) 1.84 u[iU]/mL 0.35-4.94 Methicillin resistant Staphylococcus aureus (MRSA) screening culture - 22:00 Methicillin resistant Staphylococcus aureus (MRSA) screening culture NEG NRG Serum or plasma troponin i.cardiac measurement (mass/volume) - 06/14/17 02:15 Serum or plasma troponin i.cardiac measurement (mass/volume) < ng/ mL <0.30 Myoglobin, serum - 06/14/17 02:15 Myoglobin, serum 27.2 ng/mL 10.0-92.0 Complete blood count (CBC) with automated white blood cell (WBC) differential - 06/14/17 03:45 Blood leukocytes automated count (number/volume) 8.9 10*3/uL 4.3-11.0 Blood erythrocytes automated count (number/volume) 4.36 10*6/uL 4.35-5.85 Venous blood hemoglobin measurement (mass/volume) 12.5 g/dL 11.5-16.0 Blood hematocrit (volume fraction) 38 % 35-52 Automated erythrocyte mean corpuscular volume 87 [foz_us] 80-99 Automated erythrocyte mean corpuscular hemoglobin (mass per erythrocyte) 29 pg 25-34 Automated erythrocyte mean corpuscular hemoglobin concentration measurement ( mass/volume) 33 g/dL 32-36 Automated erythrocyte distribution width ratio 13.5 % 10.0-14.5 Automated blood platelet count (count/volume) 235 10*3/uL 130-400 Automated blood platelet mean volume measurement 10.0 [foz_us] 7.4-10.4 Automated blood neutrophils/100 leukocytes 56 % 42-75 Automated blood lymphocytes/100 leukocytes 30 % 12-44 Blood monocytes/100 leukocytes 7 % 0-12 Automated blood eosinophils/100 leukocytes 6 % 0-10 Automated blood basophils/100 leukocytes 0 % 0-10 Blood neutrophils automated count (number/volume) 5.0 10*3 1.8-7.8 Blood lymphocytes automated count (number/volume) 2.7 10*3 1.0-4.0 Blood monocytes automated count (number/volume) 0.6 10*3 0.0-1.0 Automated eosinophil count 0.6 10*3/uL 0.0-0.3 Automated blood basophil count (count/volume) 0.0 10*3/uL 0.0-0.1 Comprehensive metabolic panel - 06/14/17 03:45 Serum or plasma sodium measurement (moles/volume) 139 mmol/L 135-145 Serum or plasma potassium measurement (moles/volume) 3.3 mmol/L 3.6-5.0 Serum or plasma chloride measurement (moles/volume) 109 mmol/L 98-107 Carbon dioxide 21 mmol/L 21-32 Serum or plasma anion gap determination (moles/volume) 9 mmol/L 5-14 Serum or plasma urea nitrogen measurement (mass/volume) 14 mg/dL 7-18 Serum or plasma creatinine measurement (mass/volume) 0.65 mg/dL 0.60-1.30 Serum or plasma urea nitrogen/creatinine mass ratio 22 NRG Serum or plasma creatinine measurement with calculation of estimated glomerular filtration rate > NRG Serum or plasma glucose measurement (mass/volume) 96 mg/dL 70-105 Serum or plasma calcium measurement (mass/volume) 8.2 mg/dL 8.5-10.1 Serum or plasma total bilirubin measurement (mass/volume) 0.5 mg/dL 0.1-1.0 Serum or plasma alkaline phosphatase measurement (enzymatic activity/volume) 53 U/L 40-136 Serum or plasma aspartate aminotransferase measurement (enzymatic activity/ volume) 13 U/L 5-34 Serum or plasma alanine aminotransferase measurement (enzymatic activity/volume ) 12 U/L 0-55 Serum or plasma protein measurement (mass/volume) 6.0 g/dL 6.4-8.2 Serum or plasma albumin measurement (mass/volume) 3.4 g/dL 3.2-4.5 Serum or plasma phosphate measurement (mass/volume) - 06/14/17 03:45 Serum or plasma phosphate measurement (mass/volume) 3.2 mg/dL 2.3-4.7 Magnesium - 06/14/17 03:45 Magnesium 2.1 mg/dL 1.8-2.4 Lipid 1996 panel - 06/14/17 03:45 Serum or plasma triglyceride measurement (mass/volume) 64 mg/dL <150 Serum or plasma cholesterol measurement (mass/volume) 171 mg/dL < 200 Serum or plasma cholesterol in HDL measurement (mass/volume) 48 mg/ dL 40-60 Cholesterol in LDL [mass/volume] in serum or plasma by direct assay 119 mg/dL 1-129 Serum or plasma cholesterol in VLDL measurement (mass/volume) 13 mg/ dL 5-40 Urine drug screening test - 06/14/17 11:50 Urine phencyclidine detection by screening method NEGATIVE NEGATIVE Urine benzodiazepines detection by screening method POSITIVE NEGATIVE Urine cocaine detection NEGATIVE NEGATIVE Urine amphetamines detection by screening method NEGATIVE NEGATIVE Urine methamphetamine detection by screening method NEGATIVE NEGATIVE Urine cannabinoids detection by screening method NEGATIVE NEGATIVE Urine opiates detection by screening method NEGATIVE NEGATIVE Urine barbiturates detection NEGATIVE NEGATIVE Screening urine tricyclic antidepressants detection NEGATIVE NEGATIVE Urine methadone detection by screening method NEGATIVE NEGATIVE Urine oxycodone detection NEGATIVE NEGATIVE Urine propoxyphene detection NEGATIVE NEGATIVE Complete urinalysis with reflex to culture - 12/16/17 22:37 Urine color determination RED NRG Urine clarity determination BLOODY NRG Urine pH measurement by test strip 7 5-9 Specific gravity of urine by test strip 1.005 1.016- 1.022 Urine protein assay by test strip, semi-quantitative 3+ NEGATIVE Urine glucose detection by automated test strip NEGATIVE NEGATIVE Erythrocytes detection in urine sediment by light microscopy 5+ NEGATIVE Urine ketones detection by automated test strip NEGATIVE NEGATIVE Urine nitrite detection by test strip NEGATIVE NEGATIVE Urine total bilirubin detection by test strip NEGATIVE NEGATIVE Urine urobilinogen measurement by automated test strip (mass/volume) NORMAL NORMAL Urine leukocyte esterase detection by dipstick 3+ NEGATIVE Automated urine sediment erythrocyte count by microscopy (number/high power field) [HPF] NRG Automated urine sediment leukocyte count by microscopy (number/high power field ) TNTC NRG Bacteria detection in urine sediment by light microscopy FEW NRG Squamous epithelial cells detection in urine sediment by light microscopy 2-5 NRG Crystals detection in urine sediment by light microscopy NONE NRG Casts detection in urine sediment by light microscopy NONE NRG Mucus detection in urine sediment by light microscopy NEGATIVE NRG Complete urinalysis with reflex to culture YES NRG Bacterial urine culture - 12/16/17 22:37 Bacterial urine culture [id number] NRG COLONY COUNT >100,000/ML NRG FTX;REPORTABLE SENSITIVITY REPORTED 12/18 07:55 NRG Bacterial susceptibility panel - 12/16/17 22:37 Gentamicin susceptibility test by minimum inhibitory concentration < = NRG Trimethoprim/sulfamethoxazole susceptibility test by minimum inhibitoryconcentration S NRG Ampicillin susceptibility test by minimum inhibitory concentration > = NRG Tobramycin susceptibility test by minimum inhibitory concentration < = NRG Cefazolin susceptibility test by minimum inhibitory concentration < = NRG Ceftriaxone susceptibility test by minimum inhibitory concentration <= NRG Ampicillin/sulbactam susceptibility test by minimum inhibitory concentration R NRG Piperacillin/tazobactam susceptibility test by minimum inhibitory concentration S NRG Ciprofloxacin susceptibility test by minimum inhibitory concentration <= NRG Meropenem susceptibility test by minimum inhibitory concentration < = NRG Nitrofurantoin susceptibility test by minimum inhibitory concentration <= NRG Aztreonam susceptibility test by minimum inhibitory concentration < = NRG Extended spectrum beta lactamase (ESBL) producing bacteria susceptibility test by minimum inhibitory concentration - NRG Encounters ACCT No. Visit Date/Time Discharge Status Pt. Type Provider Facility Loc./Unit Complaint [id number] 09/05/2018 05:32:00 09/05/2018 15:56:00 DIS Outpatient Sabrina MONTIEL MD [facility] PREOP PSVT [id number] 12/16/2017 22:13:00 12/16/2017 23:17:00 DIS Emergency WILLIAN ARNOLD DO [facility] ER UTI OR KIDNEY STONE [id number] 10/15/2017 08:45:00 10/15/2017 23:59:59 CLS Preadmit Sabrina MONTIEL MD [facility] CARD HTN [id number] 08/09/2017 07:36:00 10/14/2017 00:01:00 DIS Outpatient Sabrina MONTIEL MD [facility] CARD HTN [id number] 09/16/2017 09:36:00 09/16/2017 23:59:59 CLS Outpatient Sabrina MONTIEL MD [facility] CATH A-FIB [id number] 06/13/2017 21:07:00 06/14/2017 18:20:00 DIS Inpatient IDALIA MUELLER MD [facility] ICU PSVT; CHEST PAIN [id number] 02/13/2015 09:01:00 02/13/2015 23:59:59 CLS Outpatient DARLENE DORSEY APRN [facility] RT CLIFTON,MORBID OBESITY [id number] 12/31/2014 07:04:00 12/31/2014 23:59:59 CLS Outpatient DEISY HANKINS MD [facility] RAD HTN [id number] 12/27/2014 22:10:00 12/28/2014 06:45:00 DIS Outpatient AMAURY REYES DO [facility] SLEEP APNEA,SNORING, EXCESSIVE DAY TIME SLEEPING [id number] 09/26/2014 03:30:00 09/27/2014 16:12:00 DIS Inpatient FREDERICK BARRON DO [facility] CSD CHEST PAIN;HTN; HYPERGLYCEMIA [id number] 09/12/2018 08:00:00 PEN Preadmit Sabrina MONTIEL MD [facility] CATH PSVT [id number] 06/07/2015 16:35:00 Document Registration [id number] 02/13/2015 09:02:22 ACT Document Registration [id number] 01/25/2017 09:19:00 01/25/2017 10:03:00 DIS Outpatient Murphy Dupont [id number] 01/24/2017 07:36:00 01/24/2017 07:51:00 DIS Outpatient Murphy Dupont [id number] 01/23/2017 11:21:00 01/23/2017 11:37:00 DIS Outpatient Kiah Murphy [id number] 01/17/2017 12:13:00 01/17/2017 12:13:00 DIS Outpatient Murphy Dupont [id number] 01/16/2017 08:37:00 01/16/2017 09:05:00 DIS Outpatient KiahMurphy [id number] 01/15/2017 00:00:00 01/15/2017 13:10:00 DIS Outpatient Murphy Dupont [id number] 12/25/2016 09:59:00 12/25/2016 23:59:00 DIS Outpatient Murphy Dupont [id number] 10/06/2016 00:00:00 10/06/2016 13:45:00 DIS Outpatient Murphy Dupont [id number] 09/29/2016 10:03:00 09/29/2016 23:59:00 DIS Outpatient Murphy Dupont [id number] 10/06/2016 07:35:41 Document Registration [id number] 09/29/2016 10:03:00 Document Registration
[2018-09-12] MEDS ORDERED: NS IV 1000 ML 1,000 ML ONE ×2 (06:39→09:17)
[2018-09-12] MEDS ORDERED: LIDOCAINE 1% INJ 20 ML 20 ML VIAL ONE ×2 (06:39→06:59)
[2018-09-12] MEDS ORDERED: HEParin (CATH LAB) 1,000 ML IV ONE (06:39)
[2018-09-12] MEDS ORDERED: ISOPROTERENOL 0.2 MG/100 ML D5W IV ONE (06:45)
[2018-09-12] MEDS ORDERED: MIDAZOLAM 2 MG/2 ML (VERSED) VIAL ONE (06:59)
[2018-09-12] MEDS ORDERED: proPOfol 200 MG/20 ML (DIPRIVAN) VIAL IV ONE (06:59)
[2018-09-12] MEDS ORDERED: fentaNYL INJECTION 100 MCG/2 ML AMP ONE ×2 (06:59→10:56)
[2018-09-12] MEDS ORDERED: ROCURONIUM 10 MG/ML 5 ML SYRINGE IV ONE (07:00)
[2018-09-12] MEDS ORDERED: ONDANSETRON 4 MG/2 ML (SDV) Z0FRAN ONE (07:02)
[2018-09-12] MEDS: NS IV 1000 ML 1,000 ML IV SCH ×4 (07:13→22:16)
[2018-09-12 07:14] LABS: HEMOGLOBIN 12.2 G/DL (11.5-16.0); MEAN PLATELET VOLUME 9.3 FL (7.4-10.4); RED BLOOD COUNT 4.52 10^6/uL (4.35-5.85); RED CELL DISTRIBUTION WIDTH 14.8 % (10.0-14.5); WHITE BLOOD COUNT 7.2 10^3/uL (4.3-11.0)
[2018-09-12 07:23] LABS: PROTHROMBIN TIME PATIENT 13.7 SEC (12.2-14.7)
[2018-09-12] MEDS ORDERED: FLU QUADRIvalent (5+ YOA) 2018-2019 (AFLURIA) 0.5 ML IM ONE (07:30)
[2018-09-12 07:33] LABS: ALANINE AMINOTRANSFERASE 14 U/L (0-55); ALBUMIN 4.2 GM/DL (3.2-4.5); ALKALINE PHOSPHATASE 59 U/L (40-136); BILIRUBIN,TOTAL 0.9 MG/DL (0.1-1.0); BUN/CREATININE RATIO 16; CALCIUM 9.2 MG/DL (8.5-10.1); CARBON DIOXIDE 23 MMOL/L (21-32); CHLORIDE 105 MMOL/L (98-107); CHOLESTEROL 207 MG/DL (< 200); CREATININE SERUM 0.75 MG/DL (0.60-1.30); GFR ESTIMATED > 60; GLUCOSE 100 MG/DL (70-105); HDL CHOLESTEROL 58 MG/DL (40-60); POTASSIUM 3.1 MMOL/L (3.6-5.0); SODIUM 140 MMOL/L (135-145); TOTAL PROTEIN 7.1 GM/DL (6.4-8.2); TRIGLYCERIDES 87 MG/DL (<150); VLDL CHOLESTEROL 17 MG/DL (5-40)
--- NOTE | 2018-09-12 11:12 | Electrophysiology Procedure ---
EP Procedure DATE OF SERVICE:09/12/18 CARDIAC RN FIRST ASSISTANT: Nancy Siddiqui MD, [facility], [facility]. INDICATION: PSVT PREOPERATIVE DIAGNOSIS: PSVT POSTOPERATIVE DIAGNOSES: Successful Typical and Atypical AVNRT ablation. HISTORY: This is a 48 year old lady with history of PSVT and admission to the ER with narrow complex tachycardia. She has recurrent history of palpitations. The patient is planned for comprehensive EP study and ablation. PROCEDURE PERFORMED: 1. Comprehensive EP study with induction. 2. Fluoroscopy. 3. Drug infusion. 4. Ablation of typical atrial flutter. 5. Comprehensive 3D mapping with the carto system. COMPLICATION: None. ESTIMATED BLOOD LOSS: 10 mL. CONTRAST USED: None. FLUOROSCOPY TIME: 9.7 min, FLUOROSCOPY DOSE: 152 mgy. SPECIMENS: None. ANESTHESIA: Done by our anesthesia colleagues. ANTICOAGULATION: None PROCEDURE IN DETAIL: After informed consent was taken, the patient was brought to the EP lab. Anesthesia was provided by our anesthesia colleagues. The patient was draped and prepped in the usual sterile fashion. The patient presented to the EP lab in sinus rhythm. Access was gained in the right femoral vein with a 6-Greenlandic and an 8-Greenlandic sheath. Left access in left femoral vein was gained with 5-Greenlandic and 6-Greenlandic sheath respectively. High right atrial catheter was a Uegene catheter, right ventricular catheter was placed, his catheter and the CS catheter were also placed. A comprehensive EP study was done which demonstrated dual AV bennie physiology. Short run of tachycardia with critical AH, dual and triple atrial echos. 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 No sustained tachycardia was induced even on isuprel. A 3D electroanatomic mapping was donewith the carto system. Ablation was performed just proximal to the CS ostium in the region of slow pathway. Ablation focus was identified by EGM and high density voltage mapping. Isuprel still induced triple echos, therefore further ablations were done in the same region and within the CS os. Repeat EP study demonstrated no jump, no echos and non- inducible tachycardia even on Isuprel. The patienttolerated the procedure well and did not have any complication. The patientleft the lab in sinus rhythm. Total ablation time was 282 seconds. MEASUREMENTS/EP STUDY: AH Interval 60 ms, HV Interval 45 ms, AV Pusndaymcd525 ms, retrograde Ehgxbiwoik790 ms, Fast pathway ERP 600/400 ms, Slow pathway ERP 600/310 ms, Ventricular ERP was 600/270 ms, Post-ablation atrial ERP was 500/290 ms, Fast pathway ERP 600/260 ms, Fast pathway ERP 500/310 ms, Fast pathway ERP 450/270 ms. PLAN: The patient will be observed overnight and will be discharged home tomorrow with precise followup instructions. Nancy Siddiqui MD, [facility], CCDS Cardiac Electrophysiology Sabrina SIDDIQUI MD Sep 12, 2018 11:12
--- NOTE | 2018-09-12 11:12 | Cardiac Procedure Note-CS/ASA ---
Pre-Procedure Note Pre-Op Procedure Note H&P Reviewed The H&P was reviewed, patient examined and no changes noted. Date H&P Reviewed: Sep 12, 2018 Time H&P Reviewed: 07:50 Conscious Sedation Pre-Proced Time 07:50 ASA Score 3 For ASA 3 and 4: Consider anesthesia and medical clearance. Also, for patients with a history of failed moderate sedation consider anesthesia. Airway Lungs Heart ASA score ASA 1: a normal healthy patient ASA 2: a patient with a mild systemic disease (mid diabetes, controlled hypertension, obesity ASA 3: a patient with a severe systemic disease that limits activity (angina , COPD, prior Myocardial infarction) ASA 4: a patient with an incapacitating disease that is a constant threat to life (CHF, renal failure) ASA 5: a moribund patient not expected to survive 24 hrs. (ruptured aneurysm) ASA 6: a declared brain patient whose organs are being harvested. For emergent operations, add the letter E after the classification Mallampati Classification Grade 1 Sedation Plan Analgesia, Amnesia, Plan communicated to team members, Discussed options with patient/fam, Discussed risks with patient/fam The patient is an appropriate candidate to undergo the planned procedure, sedation, and anesthesia. The patient immediately re-assessed prior to indication. Sabrina MONTIEL MD Sep 12, 2018 11:12
[2018-09-12] MEDS ORDERED: PATIENT MAY USE OWN MEDS, ALL PO SCH (11:15)
[2018-09-12] MEDS ORDERED: HYDROmorphone 2 MG/ML VIAL (DILAUDID) IV ONE (11:45)
[2018-09-12] MEDS ORDERED: ONDANSETRON 4 MG/2 ML (SDV) Z0FRAN IVP PRN (11:45)
--- NOTE | 2018-09-12 12:23 | Anesthesia-General Post-Op ---
General Patient Condition Mental Status/LOC: Same as Preop Cardiovascular: Satisfactory Nausea/Vomiting: Absent Respiratory: Satisfactory Pain: Controlled Complications: Absent Post Op Complications Complications None Follow Up Care/Instructions Patient Instructions None needed. Anesthesia/Patient Condition Patient Condition Patient is doing well, no complaints, stable vital signs, no apparent adverse anesthesia problems. No complications reported per nursing. MITCH MELISSA CRNA Sep 12, 2018 12:23
[2018-09-12] MEDS: ACETAMINOPHEN 325 MG TABLET PO PRN (20:34)
[2018-09-13] MEDS: ACETAMINOPHEN 325 MG TABLET PO PRN ×2 (01:03→08:38)
[2018-09-13 01:04] VITALS: BP 122/67
[2018-09-13] MEDS: NS IV 1000 ML 1,000 ML IV SCH ×2 (03:46→07:19)
[2018-09-13 04:03] LABS: HEMOGLOBIN 10.2 G/DL (11.5-16.0); MEAN PLATELET VOLUME 9.7 FL (7.4-10.4); RED BLOOD COUNT 3.81 10^6/uL (4.35-5.85); RED CELL DISTRIBUTION WIDTH 14.9 % (10.0-14.5); WHITE BLOOD COUNT 7.3 10^3/uL (4.3-11.0)
[2018-09-13 04:27] LABS: BUN/CREATININE RATIO 13; CALCIUM 7.7 MG/DL (8.5-10.1); CARBON DIOXIDE 21 MMOL/L (21-32); CHLORIDE 110 MMOL/L (98-107); CREATININE SERUM 0.68 MG/DL (0.60-1.30); GFR ESTIMATED > 60; GLUCOSE 84 MG/DL (70-105); POTASSIUM 3.1 MMOL/L (3.6-5.0); SODIUM 140 MMOL/L (135-145)
[2018-09-13 06:03] VITALS: BP 110/69
[2018-09-13 08:30] VITALS: BP 113/70
--- NOTE | 2018-09-13 09:08 | Cardiology Discharge Summary ---
Diagnosis/Chief Complaint Date of Admission 09/12/2018 Date of Discharge 09/13/2018 Admission Diagnosis PSVT Final/Discharge Diagnosis PSVT ablation successful Chief Complaint/HPI Chief Complaint/HPI This is a 48 year old lady with history of PSVT and admission to the ER with narrow complex tachycardia. She has recurrent history of palpitations. The patient is planned for comprehensive EP study and ablation. Discharge Summary Procedures Successful typical/atypical AVNRT ablation. Discharge Physical Examination Normal cardiovascular and respiratory examination. Hospital Course Unremarkable Pending Labs Discussion & Recommendations Discussion Procedure were discussed at length with the patient and family. Discharge instructions were discussed at length. Discharge took over 30 minutes to complete. I'll follow-up in the office in 2-3 weeks. Follow up appt.: Dr. Siddiqui in 2-3 weeks. Dicharge Diet: Low Sodium Diet Activity as Tolerated: Yes Home Medications Reviewed patient Home Medication Reconciliation performed by pharmacy medication reconciliations experimental technician and/or nursing. Patients Allergies have been reviewed. Discharge Home Medications: Reviewed and agree with Discharge Medication list on patient's Discharge Instruction sheet Condition at discharge Stable. Instructions to patient/family Discharge instructions discussed at length. Sabrina SIDDIQUI MD Sep 13, 2018 09:08
--- NOTE | 2018-09-13 09:10 | Discharge Inst-Post CATH ---
Discharge Inst-CATH/EP Post Cardiac Cath/EP D/C Inst Follow Up/Plan Dr Siddiqui CARDIAC CATH DISCHARGE INSTRUCTIONS *Hold Metformin for 48 hours post heart cath. ACTIVITY * Go Home directly and rest. * Limit activity of the leg (or wrist if it was used) for 7 days including aerobics, swimming, jogging, bicycling, etc. * Restrict stair-climbing for 7 days if possible, if not, climb up with your non -cath leg, then bring together on the same step. * Avoid lifting, pushing, pulling or excessive movement of the affected extremity for 7 days. * Customary sexual activity may be resumed after 2 days-use caution not to use a position that strains or causes pain to the affected extremity. * No driving for 24 hours. * NO SMOKING. * Avoid straining for bowel movements for 7 days. * Gentle walking on level ground is allowed. * Returning to work will depend on the type of procedure and the results. Your doctor will discuss this with you. CALL YOUR DOCTOR FOR ANY OF THE FOLLOWING: *If bleeding from the puncture site occurs- Apply gentle pressure to site with clean cloth and call your doctor or EMS. * If a knot or lump forms under the skin, increases in size, or causes pain. * If bruising appears to be worsening or moving further down your leg instead of disappearing. * Temperature above 101 F. CARE OF YOUR GROIN INCISION; * Bruising or purple discoloration of the skin near the puncture site is common. * You may shower only, no bathtub bathing for 5 days. Be careful to avoid slipping as your leg may feel stiff. * If a closure device was used on your femoral artery, please see the attached guide regarding care of the device and your leg. * Leave the dressing on, until removed by office staff. CARE OF YOUR WRIST INCISION; * Bruising or purple discoloration of the skin near the puncture site is common. * You may shower. * DO NOT submerge wrist. * Leave dressing on, until removed by office staff.. Sabrina SIDDIQUI MD Sep 13, 2018 09:10
[2018-09-13] MEDS ORDERED: KCL 20 MEQ TAB (K-DUR) PO NR (09:15)
[2018-09-13] MEDS ORDERED: FLU QUADRIvalent (5+ YOA) 2018-2019 (AFLURIA) 0.5 ML IM ONE (09:24)
== END 2018-09-13 10:00 | disposition home or self-care (01) ==
LOC: CATH 06:09 → ICU 12:20 → CATH 09-13 10:00
PROVIDERS: ATTEND Internal Medicine Interventional Cardiology
DX: I47.1 Supraventricular tachycardia (principal); I10 Essential (primary) hypertension; I48.91 Unspecified atrial fibrillation; F32.9 Major depressive disorder, single episode, unspecified; Z82.49 Family history of ischemic heart disease and other diseases of the circulatory system; Z79.899 Other long term (current) drug therapy; Z79.01 Long term (current) use of anticoagulants; Z80.3 Family history of malignant neoplasm of breast
CPT/HCPCS: 36415; 80048; 80053; 80061; 84703; 85027; 85610; 85730; 87081; 90471; 90686; 93005; 93613; 93623; 93653

== ENCOUNTER → 2022-01-30 | Outpatient (CLI) | payer OTHER ==
[~2022-01-30] MED LIST changes: +LOSA50TA63 PO; -LOSA50TA7 PO; -METO-387 PO; +MTP25TSR PO
--- NOTE | 2022-01-30 14:40 | Diagnostic Imaging Report ---
PROCEDURE: Pelvic comp/transvaginal sonogram. TECHNIQUE: Complete transabdominal and transvaginal pelvic ultrasound was performed. In addition, limited pelvic Doppler was performed. INDICATION: Left lower quadrant pain. FINDINGS: Uterus is anteverted measuring 7.2 x 3.9 x 5.4 cm. Endometrium is 4 mm in thickness. There is an area of heterogeneity in the right uterus body measuring 2.2 x 1.7 x 1.7 cm, which may represent a fibroid. There are multiple cervical nabothian cysts present, largest 17 mm in size. Right ovary measures 2.4 x 1.3 x 1.9 cm, and the left ovary measures 2.9 x 1.5 x 2.5 cm. There is blood flow to both ovaries. No adnexal mass or free fluid is detected. IMPRESSION: 1. Probable uterine fibroid. The study is otherwise unremarkable. Dictated by: Dictated on workstation # [id number]
== END ==
LOC: RAD 12:00
PROVIDERS: ATTEND Nurse Practitioner
DX: R10.32 Left lower quadrant pain (principal)
CPT/HCPCS: 76830; 76856

== ENCOUNTER → 2022-10-06 | Day surgery (SDC) | payer OTHER ==
[~2022-10-06] VITALS: Ht 157 cm; Wt 109.7 kg
[~2022-10-06] MED LIST changes: +LIDOCAINE 1% INJ 20 ML VIAL INJ ONE; +LIDOCAINE 1% INJ 20 ML VIAL ONE
[2022-10-06 13:27] VITALS: BP 152/85
--- NOTE | 2022-10-06 22:46 | OPERATIVE REPORT ---
DATE OF SERVICE: 10/06/2022 PREOPERATIVE DIAGNOSIS: Implantable loop recorder at elective replacement indicator. POSTOPERATIVE DIAGNOSIS: Implantable loop recorder at elective replacement indicator. INDICATIONS: The patient is a 52-year-old lady, who has an implantable loop recorder in place that was implanted by Dr. Siddiqui several years ago. This has elective replacement indicator. The patient wants it removed. Informed consent was obtained. DESCRIPTION OF PROCEDURE: [facility] The left prepectoral area, site of implantable loop recorder implantation, was prepared and draped in the usual sterile fashion. Sharp and blunt dissection was used to open the pocket and the device was removed from the pocket. The skin edges were closed using 3.0 Vicryl. She tolerated the procedure well. Job ID: [id number] DocumentID: [id number] Dictated Date: 10/06/2022 15:32:40 Soaking Room Operator Date: 10/06/2022 22:45:00 Dictated By: SYDNI NICHOLAS MD; JONO; FACP; FACC;
== END | disposition home or self-care (01) ==
LOC: CATH 14:00
PROVIDERS: ATTEND Internal Medicine Cardiovascular Disease
DX: Z45.09 Encounter for adjustment and management of other cardiac device (principal); E66.01 Morbid (severe) obesity due to excess calories; I48.0 Paroxysmal atrial fibrillation; I10 Essential (primary) hypertension; I47.1 Supraventricular tachycardia; Z95.818 Presence of other cardiac implants and grafts; Z98.890 Other specified postprocedural states; Z68.41 Body mass index [BMI] 40.0-44.9, adult; Z79.899 Other long term (current) drug therapy; Z28.310 Unvaccinated for COVID-19
CPT/HCPCS: 33286